=== PATIENT | male | born 1975 | race African-American/Black ===

== ENCOUNTER 2020-09-20 22:46 | Emergency (ER) | payer OTHER ==
[2020-09-20 22:51] VITALS: BP 142/85; PULSE 75; TEMP 98.1; BMI 29.0
[2020-09-21] MEDS ORDERED: ACETAMINOPHEN 1000 MG/100 ML VIAL (NON FORMULARY) IVPB ONE (00:22)
[2020-09-21] MEDS ORDERED: IBUPROFEN 400 MG TABLET (FP) PO ONE ×2 (00:36→00:37)
== END 2020-09-21 00:50 | disposition left against medical advice (07) ==
LOC: JER 22:46
PROC: 3E033NZ Introduction of Analgesics, Hypnotics, Sedatives into Peripheral Vein, Percutaneous Approach (ICD-10-PCS; principal; 2020-09-20)
DX: K08.9 Disorder of teeth and supporting structures, unspecified (principal)
CPT/HCPCS: 99284-25